=== PATIENT | female | born 1945 | race Caucasian/White ===

== ENCOUNTER → 2021-08-06 10:30 | Outpatient (CLI) | payer MEDICARE, SELFPAY ==
[2021-08-06 19:12] LABS: Alanine Aminotransferase 36 IU/L (<35); Albumin 4.2 g/dL (3.5-5.0); Albumin Globulin Ratio 1.6 (1.0-2.8); Alkaline Phosphatase 69 U/L (38-126); Aspartate Aminotransferase 36 IU/L (14-36); BUN Creatinine Ratio 19.7 (6-22); Bilirubin Total 1.3 mg/dL (0.2-1.3); Blood Urea Nitrogen 14 mg/dL (7-17); Calcium 9.5 mg/dL (8.4-10.2); Carbon Dioxide 28 mmol/L (22-32); Chloride 104 mmol/L (98-107); Cholesterol 159 mg/dL (140-199); Estimated Glomerular Filt Rate > 60.0 mL/min (>60); Globulin 2.6 g/dL (1.7-4.1); Glucose 107 mg/dL (80-110); HDL Cholesterol 70 mg/dL (40-60); HEMOLYSIS < 15 (0-50); LDL Cholesterol Calculated 72 mg/dL (<100); Potassium 4.4 mmol/L (3.4-5.1); Sodium 140 mmol/L (137-145); Total Protein 6.8 g/dL (6.3-8.2); Triglycerides 86 mg/dL (35-150)
== END ==
PROVIDERS: Family Provider Family Medicine; PCP Family Medicine; Referring Provider Family Medicine; Visit Provider Family Medicine
DX: E78.5 Hyperlipidemia, unspecified (principal)
CPT/HCPCS: 80053; 80061

== ENCOUNTER → 2021-11-12 11:03 | Outpatient (CLI) | payer MEDICARE, OTHER, SELFPAY ==
[2021-11-12 18:47] LABS: Alanine Aminotransferase 19 IU/L (<35); Albumin 4.1 g/dL (3.5-5.0); Albumin Globulin Ratio 1.6 (1.0-2.8); Alkaline Phosphatase 55 U/L (38-126); Aspartate Aminotransferase 25 IU/L (14-36); BUN Creatinine Ratio 22.8 (6-22); Bilirubin Total 0.9 mg/dL (0.2-1.3); Blood Urea Nitrogen 18 mg/dL (7-17); Calcium 9.7 mg/dL (8.4-10.2); Carbon Dioxide 31 mmol/L (22-32); Chloride 103 mmol/L (98-107); Estimated Glomerular Filt Rate > 60.0 mL/min (>60); Globulin 2.5 g/dL (1.7-4.1); Glucose 106 mg/dL (80-110); HEMOLYSIS < 15 (0-50); Potassium 4.2 mmol/L (3.4-5.1); Sodium 137 mmol/L (137-145); Total Protein 6.6 g/dL (6.3-8.2)
== END ==
PROVIDERS: Family Provider Family Medicine; PCP Family Medicine; Visit Provider Student in an Organized Health Care Education/Training Program
DX: M81.0 Age-related osteoporosis without current pathological fracture (principal); Z91.89 Other specified personal risk factors, not elsewhere classified
CPT/HCPCS: 80053

== ENCOUNTER → 2022-05-31 11:27 | Outpatient (CLI) | payer MEDICARE, OTHER, SELFPAY ==
[2022-05-31 21:05] LABS: Alanine Aminotransferase 17 IU/L (<35); Albumin 3.8 g/dL (3.5-5.0); Albumin Globulin Ratio 1.5 (1.0-2.8); Alkaline Phosphatase 57 U/L (38-126); Aspartate Aminotransferase 26 IU/L (14-36); BUN Creatinine Ratio 14.9 (6-22); Blood Urea Nitrogen 11 mg/dL (7-17); Calcium 8.7 mg/dL (8.4-10.2); Carbon Dioxide 26 mmol/L (22-32); Chloride 104 mmol/L (98-107); Cholesterol 140 mg/dL (140-199); Estimated Glomerular Filt Rate > 60 mL/min (>60); Globulin 2.5 g/dL (1.7-4.1); Glucose 113 mg/dL (80-110); HDL Cholesterol 65 mg/dL (40-60); HEMOLYSIS < 15 (0-50); LDL Cholesterol Calculated 64 mg/dL (<100); Potassium 4.6 mmol/L (3.4-5.1); Sodium 137 mmol/L (137-145); Total Protein 6.3 g/dL (6.3-8.2); Triglycerides 53 mg/dL (35-150)
[2022-05-31 21:35] LABS: TSH w/ Reflex to FT4 3.71 uIU/mL (0.47-4.68)
== END ==
PROVIDERS: Family Provider Family Medicine; PCP Family Medicine; Visit Provider Family Medicine
DX: I10 Essential (primary) hypertension (principal); E78.5 Hyperlipidemia, unspecified; M81.0 Age-related osteoporosis without current pathological fracture
CPT/HCPCS: 80053; 80061; 84443

== ENCOUNTER → 2023-04-27 10:31 | Outpatient (CLI) | payer MEDICARE, OTHER, SELFPAY ==
[2023-04-27 20:20] LABS: Add Manual Diff / Slide Review NO; Basophils Absolute Auto 0 /uL (0-100); Basophils Percent Auto 0.5 % (0-2); Eosinophils Absolute Auto 100 /uL (0-450); Hematocrit 38.6 % (36-46); Lymphocytes Absolute Auto 900 /uL (1100-4500); Lymphocytes Percent Auto 22.8 % (25-40); Mean Corpuscular HGB Conc 33.7 % (30-36); Mean Corpuscular Volume 94.9 fL (80-100); Monocytes Absolute Auto 400 /uL (0-900); Monocytes Percent Auto 10.5 % (3-14); Neutrophils Absolute Auto 2600 /uL (1500-7000); Neutrophils Percent Auto 63.2 % (50-75); Platelet Count 179 X10^3/uL (150-400); Red Blood Cell Count 4.06 X10^6/uL (4.0-5.2); Red Cell Distribution Width 12.8 % (11.6-14.8); White Blood Cell Count 4.1 X10^3/uL (4.5-11.0)
[2023-04-27 20:22] LABS: Alanine Aminotransferase 24 IU/L (<35); Albumin 3.7 g/dL (3.5-5.0); Albumin Globulin Ratio 1.3 (1.0-2.8); Alkaline Phosphatase 58 U/L (38-126); Aspartate Aminotransferase 54 IU/L (14-36); BUN Creatinine Ratio 16.7 (6-22); Bilirubin Total 1.3 mg/dL (0.2-1.3); Blood Urea Nitrogen 12 mg/dL (7-17); Calcium 8.8 mg/dL (8.4-10.2); Carbon Dioxide 28 mmol/L (22-32); Chloride 105 mmol/L (98-107); Cholesterol 158 mg/dL (140-199); Estimated Glomerular Filt Rate > 60 mL/min (>60); Globulin 2.9 g/dL (1.7-4.1); Glucose 104 mg/dL (80-110); HDL Cholesterol 74 mg/dL (40-60); HEMOLYSIS < 15 (0-50); LDL Cholesterol Calculated 75 mg/dL (<100); Potassium 4.4 mmol/L (3.4-5.1); Sodium 137 mmol/L (137-145); Total Protein 6.6 g/dL (6.3-8.2); Triglycerides 46 mg/dL (35-150)
== END ==
PROVIDERS: Family Provider Family Medicine; PCP Family Medicine; Visit Provider Family Medicine
DX: I10 Essential (primary) hypertension (principal); E78.2 Mixed hyperlipidemia; E78.5 Hyperlipidemia, unspecified; F32.9 Major depressive disorder, single episode, unspecified
CPT/HCPCS: 80053; 80061; 85025

== ENCOUNTER → 2023-09-28 10:40 | Outpatient (CLI) | payer MEDICARE, OTHER, SELFPAY ==
[2023-09-28 12:35] LABS: Add Manual Diff / Slide Review NO; Basophils Absolute Auto 0 /uL (0-100); Basophils Percent Auto 0.4 % (0-2); Eosinophils Absolute Auto 100 /uL (0-450); Eosinophils Percent Auto 1.3 % (2-4); Hematocrit 40.6 % (36-46); Hemoglobin 13.7 g/dL (12.0-16.0); Lymphocytes Absolute Auto 1300 /uL (1100-4500); Lymphocytes Percent Auto 15.3 % (25-40); Mean Corpuscular HGB Conc 33.8 % (30-36); Mean Corpuscular Hemoglobin 31.8 PG (26-34); Mean Corpuscular Volume 93.9 fL (80-100); Monocytes Absolute Auto 600 /uL (0-900); Monocytes Percent Auto 7.6 % (3-14); Neutrophils Absolute Auto 6400 /uL (1500-7000); Neutrophils Percent Auto 75.4 % (50-75); Platelet Count 257 X10^3/uL (150-400); Red Blood Cell Count 4.32 X10^6/uL (4.0-5.2); Red Cell Distribution Width 12.5 % (11.6-14.8); White Blood Cell Count 8.4 X10^3/uL (4.5-11.0)
[2023-09-28 12:46] LABS: Hemoglobin A1C% w Est Avg Glu 5.7 % (4.0-6.0)
[2023-09-28 13:03] LABS: BUN Creatinine Ratio 20.3 (6-22); Blood Urea Nitrogen 16 mg/dL (7-17); Calcium 9.8 mg/dL (8.4-10.2); Carbon Dioxide 28 mmol/L (22-32); Chloride 100 mmol/L (98-107); Estimated Glomerular Filt Rate > 60 mL/min (>60); Glucose 99 mg/dL (80-110); HEMOLYSIS < 15 (0-50); Potassium 4.4 mmol/L (3.4-5.1); Sodium 135 mmol/L (137-145)
[2023-09-28 18:10] LABS: Appearance Urine UA CLEAR; Bilirubin Urine UA NEGATIVE (NEGATIVE); Color Urine UA YELLOW; Glucose Urine UA NEGATIVE (Negative); Ketones Urine UA NEGATIVE (NEGATIVE); Leukocyte Esterase Urine UA NEGATIVE (NEGATIVE); Nitrite Urine UA NEGATIVE (Negative); Occult Blood Urine UA NEGATIVE (Negative); Protein Urine UA NEGATIVE (Negative); Urobilinogen Urine UA 0.2 E.U./dL (0.2)
[2023-09-28 18:30] LABS: Bacteria Urine None Seen; RBC Urine None Seen (0-5/HPF); Squamous Epithelial Cell Urine 0-1 /HPF (0-5/HPF); WBC Urine None Seen (0-5/HPF)
[2023-09-28 18:31] LABS: Culture Indicated Urine Cult Not Indicated
== END ==
PROVIDERS: Family Provider Family Medicine; PCP Family Medicine; Referring Provider Orthopaedic Surgery; Visit Provider Orthopaedic Surgery
DX: Z01.818 Encounter for other preprocedural examination (principal); R73.9 Hyperglycemia, unspecified; Z01.812 Encounter for preprocedural laboratory examination; N39.0 Urinary tract infection, site not specified
CPT/HCPCS: 36415; 80048; 81001; 83036; 85025; 93005; 93010

== ENCOUNTER → 2024-05-16 09:34 | Outpatient (CLI) | payer MEDICARE, OTHER, SELFPAY ==
[2024-05-16 20:19] LABS: Add Manual Diff / Slide Review NO; Basophils Absolute Auto 0 /uL (0-100); Basophils Percent Auto 0.5 % (0-2); Eosinophils Absolute Auto 100 /uL (0-450); Hematocrit 39.2 % (36-46); Lymphocytes Absolute Auto 1100 /uL (1100-4500); Lymphocytes Percent Auto 19.2 % (25-40); Mean Corpuscular HGB Conc 33.3 % (30-36); Mean Corpuscular Hemoglobin 31.5 PG (26-34); Mean Corpuscular Volume 94.7 fL (80-100); Monocytes Absolute Auto 500 /uL (0-900); Monocytes Percent Auto 7.9 % (3-14); Neutrophils Absolute Auto 4000 /uL (1500-7000); Neutrophils Percent Auto 70.4 % (50-75); Platelet Count 207 X10^3/uL (150-400); Red Blood Cell Count 4.14 X10^6/uL (4.0-5.2); Red Cell Distribution Width 12.4 % (11.6-14.8); White Blood Cell Count 5.7 X10^3/uL (4.5-11.0)
[2024-05-16 20:34] LABS: Alanine Aminotransferase 22 IU/L (<35); Albumin Globulin Ratio 1.6 (1.0-2.8); Alkaline Phosphatase 73 U/L (38-126); Aspartate Aminotransferase 31 IU/L (14-36); BUN Creatinine Ratio 19.5 (6-22); Bilirubin Total 0.8 mg/dL (0.2-1.3); Bilirubin Unconjugated 0.3 mg/dL (0.0-1.1); Blood Urea Nitrogen 15 mg/dL (7-17); Carbon Dioxide 25 mmol/L (22-32); Chloride 107 mmol/L (98-107); Cholesterol 170 mg/dL (140-199); Estimated Glomerular Filt Rate > 60 mL/min (>60); Globulin 2.5 g/dL (1.7-4.1); Glucose 107 mg/dL (80-110); HDL Cholesterol 64 mg/dL (40-60); HEMOLYSIS 21 (0-50); LDL Cholesterol Calculated 89 mg/dL (<100); Potassium 4.3 mmol/L (3.4-5.1); Sodium 137 mmol/L (137-145); Total Protein 6.5 g/dL (6.3-8.2); Triglycerides 85 mg/dL (35-150)
[2024-05-16 21:05] LABS: TSH w/ Reflex to FT4 3.62 uIU/mL (0.47-4.68)
[2024-05-16 21:27] LABS: Hepatitis B Surface Antigen NEGATIVE s/c (NEGATIVE)
[2024-05-16 21:44] LABS: Hep C Virus Ab w/Reflex Quant NEGATIVE s/c (NEGATIVE)
== END ==
PROVIDERS: PCP Family Medicine; Referring Provider Family Medicine; Visit Provider Family Medicine
DX: R00.2 Palpitations (principal); R79.89 Other specified abnormal findings of blood chemistry; D72.810 Lymphocytopenia; E78.2 Mixed hyperlipidemia; I10 Essential (primary) hypertension
CPT/HCPCS: 80048; 80061; 80076; 84443; 85025; 86803; 87340

== ENCOUNTER → 2024-05-23 13:37 | Outpatient (CLI) | payer MEDICARE, OTHER, SELFPAY ==
--- NOTE | 2024-05-23 13:40 | DI.ECHO.S_ITS ---
[facility] : : [address] : : [place] : : [id number] : : Phone: [phone] Echocardiogram Report + + :Name: BRIAN HUBBARD Study Date: 05/23/2024 Height: 60 in : :Hospital ReadingLocation: Weight: 122 lb : : Gender: Female BSA: 1.5 m2 : :: 1945 Age: 78 yrs BP: 136/69 mmHg: :Reason For Study: Atrial fibrillation : :Ordering Physician: : :KATHLEEN CHACKO Performed By: Lori Gil : :Referring: KATHLEEN CHACKO : + + Interpretation Summary Normal sinus rhythm with rare PVCs. Normal LV size and wall thickness. Normal wall motion and LV systolic function. Ejection fraction is 60-65%. Normal chamber sizes. No significant valvular abnormalities. Compared to prior echocardiogram October 12, 2020, no changes have occurred. Procedure: A two-dimensional transthoracic echocardiogram with color flow and Doppler was performed. The study quality was technically adequate. Comparison is made with the echocardiogram of 08-01-20. The heart rate ranged between 72-77 bpm during the study. Left Ventricle: The left ventricle is normal in size and wall thickness. The ejection fraction is estimated to be 55-60%. Diastolic parameters suggest probable normal left ventricular diastolic function and normal filling pressures. Right Ventricle: Borderline right ventricular enlargement. The right ventricular systolic function is normal. Atria: The left atrial size is normal. Right atrial size is normal. The interatrial septum grossly appears intact with no obvious evidence for an atrial septal defect. Mitral Valve: The mitral valve leaflets appear mildly thickened, but open well. There is mild mitral regurgitation. Aortic Valve: The aortic valve is trileaflet. The aortic valve opens well. No aortic regurgitation is present. Tricuspid Valve: The tricuspid valve leaflets are thin and pliable. There is mild tricuspid regurgitation. The right ventricular systolic pressure is estimated to be at least 19 mmHg based on an estimated right atrial pressure of 3 mm Hg. Pulmonic Valve: The pulmonic valve is normal in structure and function. There is no pulmonic valvular regurgitation. Great Vessels: The aortic root is normal size. The ascending aorta is normal in size. The aortic arch is normal in size. The IVC is of normal diameter and collapses greater than 50% with a sniff. This suggests a low right atrial pressure of 3 mm Hg. Pericardium/ Pleura There is no pericardial effusion. There is no pleural effusion. MMode/2D Measurements & Calculations LVIDd: 4.0 cm LVOT diam: 1.9 cm LVIDs: 2.7 cm Ao root diam: 2.8 cm FS: 32.5 % asc Aorta Diam: 2.7 cm EPSS: 0.33 cm Ao Arch Diam (Prox Trans): 2.1 cm IVSd: 0.83 cm LVPWd: 0.61 cm LV russo. diameter/BSA (cm/m^2): 2.6 LV sys. diameter/BSA (cm/m^2): 1.8 LA A2 area: 14.9 cm2 RA long axis: 5.0 cm LA A4 area: 19.5 cm2 RA area: 15.7 cm2 LA length (vol): 5.1 cm RA vol: 42.3 ml LA vol: 48.7 ml RA : 28.0 ml/m2 LA vol index: 32.2 ml/m2 IVC diam: 1.5 cm TAPSE: 1.9 cm Doppler Measurements & Calculations Ao V2 max: 133.7 cm/sec LVOT Max Luis: 98.3 cm/sec Ao V2 mean: 88.2 cm/sec LV V1 max P.9 mmHg Ao max P.2 mmHg LV V1 VTI: 23.0 cm Ao mean P.6 mmHg ALIA(I,D): 2.0 cm2 Ao V2 VTI: 31.6 cm ALIA(V,D): 2.1 cm2 sev ratio: 0.73 ALIA indexed to BSA (cm^2/m^2): 1.4 MV E max luis: 69.6 cm/sec TR max luis: 193.2 cm/sec MV A max luis: 57.1 cm/sec TR max P.1 mmHg MV E/A: 1.2 PA V2 max: 69.1 cm/sec Med Peak E' Luis: 6.9 cm/sec PA V2 mean: 51.0 cm/sec E/E' med: 10.1 PA mean P.1 mmHg Lat Peak E' Luis: 7.6 cm/sec E/E' lat: 9.2 E/e' average: 9.6 MV dec time: 0.21 sec SV(LVOT): 64.6 ml Electronically signed by: Toña Altamirano M.D. on Reading Physician:05/23/2024 05:08 PM
== END ==
PROVIDERS: Family Provider Family Medicine; PCP Family Medicine; Referring Provider Family Medicine; Visit Provider Family Medicine
DX: I08.1 Rheumatic disorders of both mitral and tricuspid valves (principal); R00.2 Palpitations; G47.33 Obstructive sleep apnea (adult) (pediatric)
CPT/HCPCS: 93306

== ENCOUNTER 2024-10-05 15:26 | Emergency (ER) | payer MEDICARE, OTHER, SELFPAY ==
[2024-10-05 15:39] VITALS: BP 173/84; PULSE 80; RESP 17; TEMP 36.2; O2SAT 95; BMI 23.6
--- NOTE | 2024-10-05 17:09 | DI.RAD.S_ITS ---
PROCEDURE: XR CHEST 2V INDICATIONS: SOB TECHNIQUE: 2 views of the chest were acquired. COMPARISON: None. FINDINGS: Surgical changes and devices: None. Lungs and pleura: There is hazy obscuration of the hemidiaphragms, right greater than left. Left lower lobe atelectasis is also present. Mediastinum: Mediastinal contours are normal. Heart size is normal. Bones and chest wall: No suspicious bony abnormalities. Soft tissues appear unremarkable. IMPRESSION: Right lower lobe consolidation with a likely component of small effusion. Dictated by: Ebonie Culver M.D. on 10/05/2024 at 16:28 Approved by: Ebonie Culver M.D. on 10/05/2024 at 16:31
--- NOTE | 2024-10-05 17:47 | ED_ITS ---
HPI - URI/Sore Throat <Joanne Collier PA-C - Last Filed: 10/05/24 19:42> General Chief Complaint: Upper Respiratory Symptoms Stated Complaint: SOB, wheezing Time Seen by Provider: 10/05/24 17:19 Source: patient Mode of arrival: Ambulatory History of Present Illness HPI Narrative: This is a 79-year-old woman with a history of hypertension, SVT, hyperlipidemia presenting with her with concern for feeling short of breath with exertion and having pain in her right back/flank that is worse with taking deep breaths. Symptoms began on Monday. She initially attributed the back discomfort to her chronic pain with osteoporosis and states it felt like a muscle spasm and assumed it would go away. It has gotten slightly better but has not gone away. Her is a physician and he listened to her lungs yesterday and thought he heard some rales in her lower lung on the right listened again today and felt he heard them on both sides. She states she has not felt especially tired lately but she has been feeling short of breath compared to her normal when she is active or exerting herself at all which is atypical. She denies chest pain, coughing, hemoptysis, fevers, chills or other symptoms. notes concern that she was pretty stationary on Monday with multiple [place] rides and being in a long meeting and is concerned about a pulmonary embolism. They came in today for further evaluation. notes they are due to travel on Monday in 3 days' time. Patient states that she has been titrating down her blood pressure medications for weeks to months and does check her blood pressure fairly often though she has been checking it less since things were stable. She has checked it twice this week and states her blood pressure was around 142 for the top number and another time she checked it was in the 120s. Related Data Previous Rx's Medication Instructions Recorded trazodone 100 mg tablet 100 mg PO BEDTIME PRN sleep #90 04/07/23 tabs atorvastatin 40 mg tablet 40 mg PO HS #90 tabs 12/04/23 sertraline 50 mg tablet (Zoloft) 75 mg (1.5 x 50 mg) PO QDAY #135 02/02/24 tabs nirmatrelvir 300 mg (150 mg See Rx Instructions PO .COMPLEX 05/10/24 x2)-ritonavir 100 mg tablet,dose #30 ea pack (Paxlovid) metoprolol succinate 25 mg 12.5 mg (1/2 x 25 mg) PO DAILY #45 06/12/24 tablet,extended release 24 hr tabs (Toprol XL) losartan 25 mg tablet 37.5 mg (1.5 x 25 mg) PO DAILY 09/11/24 #135 tabs acetaminophen 300 mg-codeine 30 mg 1 tab PO QIDP PRN pain #40 tabs 10/03/24 tablet azithromycin 250 mg tablet 250 mg PO DAILY 4 days #4 tabs 10/05/24 Allergies Allergy/AdvReac Type Severity Reaction Status Date / Time aspirin Allergy Unknown BLEEDS Verified 10/05/24 15:39 INTERNALLY ibuprofen Allergy Unknown aleve as Verified 10/05/24 15:39 well both upset her esophagus Review of Systems <Joanne Collier PA-C - Last Filed: 10/05/24 19:42> Review of Systems Narrative: See HPI Patient History <Joanne Collier PA-C - Last Filed: 10/05/24 19:42> Medical History Screening for breast cancer Screening for colon cancer Surgical History H/O hernia repair History of back surgery Social History Smoking Status: Never smoker Smoking Status: Never smoker Exam <Joanne Collier PA-C - Last Filed: 10/05/24 19:42> Narrative Exam Narrative: GENERAL: [79] year old patient appears stated age. Well-developed patient, in mild distress. HEAD: Atraumatic. Normocephalic. EYES: Pupils equal round and reactive. Extraocular motions intact. No scleral icterus. No injection or drainage. ENT: Nose without bleeding, purulent drainage. Airway patent. NECK: Trachea midline. Non tender CARDIOVASCULAR: Regular rate and rhythm without murmurs, gallops, or rubs. RESPIRATORY: Clear to auscultation in upper [place]. There are subtle rales/crackles versus mild rhonchi in the lower right field. Breath sounds otherwise equal bilaterally. No other wheezes, rales, or rhonchi. EXTREMITIES: No edema or joint tenderness. BACK: Nontender without deformity or crepitance. No flank tenderness. NEURO: AOx3. SKIN: No rash or erythema of visible areas Initial Vital Signs Initial Vital Signs: Vital Signs Temperature 97.2 F L 10/05/24 15:39 Pulse Rate 80 10/05/24 15:39 Respiratory Rate 17 10/05/24 15:39 Blood Pressure 173/84 H 10/05/24 15:39 Pulse Oximetry 95 10/05/24 15:39 Oxygen Delivery Method Room Air 10/05/24 15:39 <Juan R Carrero DO - Last Filed: 10/05/24 23:03> Initial Vital Signs Initial Vital Signs: Vital Signs Temperature 97.2 F L 10/05/24 15:39 Pulse Rate 80 10/05/24 15:39 Respiratory Rate 17 10/05/24 15:39 Blood Pressure 173/84 H 10/05/24 15:39 Pulse Oximetry 95 10/05/24 15:39 Oxygen Delivery Method Room Air 10/05/24 15:39 Course <Joanne Collier PA-C - Last Filed: 10/05/24 19:42> Course Course Narrative: I discussed this patient with Dr. Carrero attending physician who remains on shift in the emergency department and he agrees to take over the patient's care with CT study pending. 1929 Orders Ordered: ED Orders 10/05/24 17:09 XR chest 2V Stat 10/05/24 18:23 BNP [NT-proBNP (BNP-Adult 18+)] Stat CBC Auto Diff [Complete Blood Count AUTO DIFF] Stat CMP [Comprehensive Metabolic Panel] Stat D Dimer Stat Troponin & CK Cardiac Panel Stat 10/05/24 19:01 CT angio chest PE protocol Stat Discontinued Medications Azithromycin (Azithromycin 250 Mg Tablet) 500 mg PO NOW ONE Stop: 10/05/24 20:14 Last Admin: 10/05/24 20:18 Dose: 500 mg Documented By: MONTRELL Vital Signs Vital signs: Vital Signs - 8 hr 10/05/24 15:39 10/05/24 19:49 10/05/24 20:00 Temperature 97.2 F L Pulse Rate 80 70 71 Respiratory Rate 17 16 Blood Pressure 173/84 H 161/72 H Pulse Oximetry 95 98 96 Oxygen Delivery Method Room Air Room Air <DO Eladio Henriquez Filed: 10/05/24 23:03> Orders Ordered: ED Orders 10/05/24 17:09 XR chest 2V Stat 10/05/24 18:23 BNP [NT-proBNP (BNP-Adult 18+)] Stat CBC Auto Diff [Complete Blood Count AUTO DIFF] Stat CMP [Comprehensive Metabolic Panel] Stat D Dimer Stat Troponin & CK Cardiac Panel Stat 10/05/24 19:01 CT angio chest PE protocol Stat Discontinued Medications Azithromycin (Azithromycin 250 Mg Tablet) 500 mg PO NOW ONE Stop: 10/05/24 20:14 Last Admin: 10/05/24 20:18 Dose: 500 mg Documented By: MONTRELL Vital Signs Vital signs: Vital Signs - 8 hr 10/05/24 15:39 10/05/24 19:49 10/05/24 20:00 Temperature 97.2 F L Pulse Rate 80 70 71 Respiratory Rate 17 16 Blood Pressure 173/84 H 161/72 H Pulse Oximetry 95 98 96 Oxygen Delivery Method Room Air Room Air MDM - URI/Sore Throat <Joanne Collier PA-C - Last Filed: 10/05/24 19:42> Differential Diagnosis Differential diagnosis: Likely upper respiratory infection, viral infection and other (pnemonia, pleural effusion, PE) Medical Records Attestation: I reviewed the patient's medical records. Lab Data 10/05/24 18:23 10/05/24 18:23 Labs: Lab Results 10/05/24 Range/Units 18:23 WBC 6.4 (4.5-11.0) X10^3/uL RBC 4.36 (4.0-5.2) X10^6/uL Hgb 13.8 (12.0-16.0) g/dL Hct 40.9 (36-46) % MCV 93.9 (80-100) fL MCH 31.7 (26-34) PG MCHC 33.7 (30-36) % RDW 12.7 (11.6-14.8) % Plt Count 197 (150-400) X10^3/uL Neut % (Auto) 68.5 (50-75) % Lymph % (Auto) 18.7 L (25-40) % [place] % (Auto) 9.8 (3-14) % Eos % (Auto) 2.2 (2-4) % Baso % (Auto) 0.8 (0-2) % Neut # (Auto) 4400 (0646-4265) /uL Lymph # (Auto) 1200 (8826-7165) /uL [place] # (Auto) 600 (0-900) /uL Eos # (Auto) 100 (0-450) /uL Baso # (Auto) 100 (0-100) /uL D-Dimer 1030 H (<500) ng/ml Sodium 139 (137-145) mmol/L Potassium 3.9 (3.4-5.1) mmol/L Chloride 106 (98-107) mmol/L Carbon Dioxide 26 (22-32) mmol/L BUN 16 (7-17) mg/dL Creatinine 0.75 (0.52-1.04) mg/dL Estimated GFR > 60 (>60) mL/min BUN/Creatinine Ratio 21.3 (6-22) Glucose 89 (80-110) mg/dL Calcium 9.5 (8.4-10.2) mg/dL Total Bilirubin 1.1 (0.2-1.3) mg/dL AST 30 (14-36) IU/L ALT 22 (<35) IU/L Alkaline Phosphatase 83 (38-126) U/L Total Creatine Kinase 56 (30-135) U/L Troponin I < 0.012 (0.01-0.034) ng/mL NT-Pro-B Natriuret Pep 507 H (<450) pg/mL Total Protein 7.3 (6.3-8.2) g/dL Albumin 4.3 (3.5-5.0) g/dL Globulin 3.0 (1.7-4.1) g/dL Albumin/Globulin Ratio 1.4 (1.0-2.8) Imaging Data Chest x-ray: My Impression: Agree with Radiology interpretation Radiologist's Impression: [address] [address] XRay Report Signed Patient: Madyson Canales MR#: [id number] : 1945 Acct:[id number] Age/Sex: 79 / F Date of Service: 10/05/24 Loc: ED Accession Number: [id number] Procedure: XR chest 2V Ordering Provider: Amy Ribera D.O. PROCEDURE: XR CHEST 2V INDICATIONS: SOB TECHNIQUE: 2 views of the chest were acquired. COMPARISON: None. FINDINGS: Surgical changes and devices: None. Lungs and pleura: There is hazy obscuration of the hemidiaphragms, right greater than left. Left lower lobe atelectasis is also present. Mediastinum: Mediastinal contours are normal. Heart size is normal. Bones and chest wall: No suspicious bony abnormalities. Soft tissues appear unremarkable. IMPRESSION: Right lower lobe consolidation with a likely component of small effusion. Dictated by: Ebonie Culver M.D. on 10/05/2024 at 16:28 Approved by: Ebonie Culver M.D. on 10/05/2024 at 16:31 [facility] Narrative Medical decision making narrative: 79-year-old woman presents to the ER today with concern for shortness of breath more prominent with exertion since Monday and pleuritic type pain in the right low back. Exam was notable for changes to the lung sounds in the right lower lung, x-ray did return positive for lower lobe consolidation likely consistent with pneumonia with a small effusion present. We discussed treating with azithromycin given mycoplasma pneumonia is prevalent currently and patient has had no cough symptoms which are more likely to suggest pneumonia such as mycoplasma. On further discussion with the patient's , an MD, he is concerned with pulmonary embolism as he feels she has had periods of immobility recently and with her low O2 sats and shortness of breath, pain on breathing he would like further evaluation for this. I feel this is reasonable; [place], we obtain labs including a D- dimer CBC and CMP. D-dimer is elevated, age adjusted D-dimer cutoff is 770, patient's D-dimer is over 1000. Discussed with patient his and order CT PE for further evaluation. <Juan R Carrero, DO - Last Filed: 10/05/24 23:03> Lab Data Labs: Lab Results 10/05/24 Range/Units 18:23 WBC 6.4 (4.5-11.0) X10^3/uL RBC 4.36 (4.0-5.2) X10^6/uL Hgb 13.8 (12.0-16.0) g/dL Hct 40.9 (36-46) % MCV 93.9 (80-100) fL MCH 31.7 (26-34) PG MCHC 33.7 (30-36) % RDW 12.7 (11.6-14.8) % Plt Count 197 (150-400) X10^3/uL Neut % (Auto) 68.5 (50-75) % Lymph % (Auto) 18.7 L (25-40) % [place] % (Auto) 9.8 (3-14) % Eos % (Auto) 2.2 (2-4) % Baso % (Auto) 0.8 (0-2) % Neut # (Auto) 4400 (4270-0230) /uL Lymph # (Auto) 1200 (0634-9290) /uL [place] # (Auto) 600 (0-900) /uL Eos # (Auto) 100 (0-450) /uL Baso # (Auto) 100 (0-100) /uL D-Dimer 1030 H (<500) ng/ml Sodium 139 (137-145) mmol/L Potassium 3.9 (3.4-5.1) mmol/L Chloride 106 (98-107) mmol/L Carbon Dioxide 26 (22-32) mmol/L BUN 16 (7-17) mg/dL Creatinine 0.75 (0.52-1.04) mg/dL Estimated GFR > 60 (>60) mL/min BUN/Creatinine Ratio 21.3 (6-22) Glucose 89 (80-110) mg/dL Calcium 9.5 (8.4-10.2) mg/dL Total Bilirubin 1.1 (0.2-1.3) mg/dL AST 30 (14-36) IU/L ALT 22 (<35) IU/L Alkaline Phosphatase 83 (38-126) U/L Total Creatine Kinase 56 (30-135) U/L Troponin I < 0.012 (0.01-0.034) ng/mL NT-Pro-B Natriuret Pep 507 H (<450) pg/mL Total Protein 7.3 (6.3-8.2) g/dL Albumin 4.3 (3.5-5.0) g/dL Globulin 3.0 (1.7-4.1) g/dL Albumin/Globulin Ratio 1.4 (1.0-2.8) Imaging Data CT scan - chest: Radiologist's Impression: PROCEDURE: CT ANGIO CHEST PE PROTOCOL INDICATIONS: low sat, elevated dimer, shob w/exertion TECHNIQUE: After the administration of intravenous contrast, 2 mm thick sections acquired from the pulmonary apices to the posterior costophrenic angles. 3-dimensional maximum intensity projection (MIP) coronal and sagittal reformats were then acquired through the thorax. For radiation dose reduction, the following was used: automated exposure control, adjustment of mA and/or kV according to patient size. COMPARISON: [facility], CR, XR CHEST 2V, 10/05/2024, 17:08. FINDINGS: Image quality: Diagnostic. Pulmonary arteries: Pulmonary arteries are normal in size, and demonstrate no intraluminal filling defects to suggest central pulmonary embolism. Lower Neck: No enlarged lymph nodes. Thyroid: No thyroid nodules which require sonographic follow up, per consensus guidelines. Axillae: No enlarged lymph nodes. Chest Wall: Unremarkable. Bones: Visualized osseous structures appear intact without acute fracture or focal destructive lesion. No acute compression fractures of the imaged spine. Lungs and Pleura: No pneumothorax or pleural effusions. No suspicious pulmonary nodules. Bibasilar atelectasis. Mild patchy consolidations of the left lower lobe, right lower lobe and medial right middle lobe with mild perihilar airway thickening. Heart: Heart size is normal. No pericardial effusion. Thoracic Vessels: No aortic aneurysm. Mediastinum and Hiral: No enlarged lymph nodes. Esophagus: No wall thickening. No hiatal hernia. Upper Abdomen: Visualized upper abdomen solid organs and bowel loops appear normal. IMPRESSION: No pulmonary embolus. No evidence for acute right-sided heart strain. Patchy right greater than left bibasilar consolidations as well as the medial right middle lobe which are favored to represent atelectasis. However, early infectious process not excluded if clinically appropriate. Otherwise, no acute cardiopulmonary abnormalities identified. MDM Narrative Medical decision making narrative: 79-year-old woman presents to the ER today with concern for shortness of breath more prominent with exertion since Monday and pleuritic type pain in the right low back. Exam was notable for changes to the lung sounds in the right lower lung, x-ray did return positive for lower lobe consolidation likely consistent with pneumonia with a small effusion present. We discussed treating with azithromycin given mycoplasma pneumonia is prevalent currently and patient has had no cough symptoms which are more likely to suggest pneumonia such as mycoplasma. On further discussion with the patient's , an MD, he is concerned with pulmonary embolism as he feels she has had periods of immobility recently and with her low O2 sats and shortness of breath, pain on breathing he would like further evaluation for this. I feel this is reasonable; [place], we obtain labs including a D- dimer CBC and CMP. D-dimer is elevated, age adjusted D-dimer cutoff is 770, patient's D-dimer is over 1000. Discussed with patient his and order CT PE for further evaluation. Dr Carrero: Received turned over. Review patient's history and physical. Chest x-ray somewhat concerning for pneumonia. CT scan of the chest does not show pneumonia. Does show bilateral patchy airspace disease. Could be consistent with atelectasis versus pneumonia. She was not have a white count. Is afebrile. Does not have a productive cough. I feel that pneumonia is unlikely however she was having shortness of breath and there are abnormal findings noted on imaging studies. I discussed options with her to include using an incentive spirometer and seeing how her symptoms progress over the next couple days and starting antibiotics after falling up with primary doctor versus starting on antibiotics today. We discussed the risks and benefits of both of these options and she would like to start on antibiotics. First dose given here in the emergency department. A prescription was sent to the pharmacy of her choice. She was advised to contact her primary provider for follow-up. Discharge Plan Departure Patient Disposition: Home Clinical Impression: Shortness of breath, Pneumonia Instructions: Pneumonia-Adult Activity Restrictions/Additional Instructions: Continue to take all of your medications as directed. Contact your primary care doctor for a follow-up. Return to the emergency department for new or worsening symptoms. Prescriptions: New azithromycin 250 mg tablet 250 mg PO DAILY 4 Days Qty: 4 0RF Rx Instructions: start on day 2 of therapy No Action atorvastatin 40 mg tablet 40 mg PO HS Qty: 90 3RF sertraline [Zoloft] 50 mg tablet 75 mg PO QDAY Qty: 135 3RF Paxlovid 300 mg (150 mg x 2)-100 mg tablets,dose pack See Rx Instructions PO .COMPLEX Qty: 30 0RF Rx Instructions: take TWO 150 mg tablets of nirmatrelvir with ONE 100 mg tablet of ritonavir twice daily for 5 days PO losartan 25 mg tablet 37.5 mg PO DAILY Qty: 135 1RF acetaminophen-codeine 300-30 mg tablet 1 tab PO QIDP PRN (Reason: pain) Qty: 40 0RF trazodone 100 mg tablet 100 mg PO BEDTIME PRN (Reason: sleep) Qty: 90 1RF Rx Instructions: TAKE 0.5 TAB (50 MG) BY MOUTH AT BEDTIME NEEDED FOR SLEEP. MAY INCREASE TO 100 MG QHS AFTER 3 DAYS. triamcinolone acetonide [Kenalog] 40 mg/mL suspension 40 mg Tendon Sheath Inj. ONCE Qty: 1 0RF metoprolol succinate [Toprol XL] 25 mg tablet extended release 24 hr 12.5 mg PO DAILY Qty: 45 2RF Referrals: Maged Augustine MD [Primary Care Provider] - Stand Alone Forms: Patient Portal/API/Survey
[2024-10-05 18:42] LABS: Add Manual Diff / Slide Review NO; Basophils Absolute Auto 100 /uL (0-100); Basophils Percent Auto 0.8 % (0-2); Eosinophils Absolute Auto 100 /uL (0-450); Eosinophils Percent Auto 2.2 % (2-4); Hematocrit 40.9 % (36-46); Hemoglobin 13.8 g/dL (12.0-16.0); Lymphocytes Absolute Auto 1200 /uL (1100-4500); Lymphocytes Percent Auto 18.7 % (25-40); Mean Corpuscular HGB Conc 33.7 % (30-36); Mean Corpuscular Hemoglobin 31.7 PG (26-34); Mean Corpuscular Volume 93.9 fL (80-100); Monocytes Absolute Auto 600 /uL (0-900); Monocytes Percent Auto 9.8 % (3-14); Neutrophils Absolute Auto 4400 /uL (1500-7000); Neutrophils Percent Auto 68.5 % (50-75); Platelet Count 197 X10^3/uL (150-400); Red Blood Cell Count 4.36 X10^6/uL (4.0-5.2); Red Cell Distribution Width 12.7 % (11.6-14.8); White Blood Cell Count 6.4 X10^3/uL (4.5-11.0)
[2024-10-05 18:46] LABS: D Dimer 1030 ng/ml (<500)
[2024-10-05 18:47] LABS: Alanine Aminotransferase 22 IU/L (<35); Albumin 4.3 g/dL (3.5-5.0); Albumin Globulin Ratio 1.4 (1.0-2.8); Alkaline Phosphatase 83 U/L (38-126); Aspartate Aminotransferase 30 IU/L (14-36); BUN Creatinine Ratio 21.3 (6-22); Bilirubin Total 1.1 mg/dL (0.2-1.3); Blood Urea Nitrogen 16 mg/dL (7-17); Calcium 9.5 mg/dL (8.4-10.2); Carbon Dioxide 26 mmol/L (22-32); Chloride 106 mmol/L (98-107); Estimated Glomerular Filt Rate > 60 mL/min (>60); Glucose 89 mg/dL (80-110); HEMOLYSIS < 15 (0-50); Potassium 3.9 mmol/L (3.4-5.1); Sodium 139 mmol/L (137-145); Total Protein 7.3 g/dL (6.3-8.2)
--- NOTE | 2024-10-05 19:01 | DI.CT.S_ITS ---
PROCEDURE: CT ANGIO CHEST PE PROTOCOL INDICATIONS: low sat, elevated dimer, shob w/exertion TECHNIQUE: After the administration of intravenous contrast, 2 mm thick sections acquired from the pulmonary apices to the posterior costophrenic angles. 3-dimensional maximum intensity projection (MIP) coronal and sagittal reformats were then acquired through the thorax. For radiation dose reduction, the following was used: automated exposure control, adjustment of mA and/or kV according to patient size. COMPARISON: [facility], CR, XR CHEST 2V, 10/05/2024, 17:08. FINDINGS: Image quality: Diagnostic. Pulmonary arteries: Pulmonary arteries are normal in size, and demonstrate no intraluminal filling defects to suggest central pulmonary embolism. Lower Neck: No enlarged lymph nodes. Thyroid: No thyroid nodules which require sonographic follow up, per consensus guidelines. Axillae: No enlarged lymph nodes. Chest Wall: Unremarkable. Bones: Visualized osseous structures appear intact without acute fracture or focal destructive lesion. No acute compression fractures of the imaged spine. Lungs and Pleura: No pneumothorax or pleural effusions. No suspicious pulmonary nodules. Bibasilar atelectasis. Mild patchy consolidations of the left lower lobe, right lower lobe and medial right middle lobe with mild perihilar airway thickening. Heart: Heart size is normal. No pericardial effusion. Thoracic Vessels: No aortic aneurysm. Mediastinum and Hiral: No enlarged lymph nodes. Esophagus: No wall thickening. No hiatal hernia. Upper Abdomen: Visualized upper abdomen solid organs and bowel loops appear normal. IMPRESSION: No pulmonary embolus. No evidence for acute right-sided heart strain. Patchy right greater than left bibasilar consolidations as well as the medial right middle lobe which are favored to represent atelectasis. However, early infectious process not excluded if clinically appropriate. Otherwise, no acute cardiopulmonary abnormalities identified. Dictated by: Darin Perez M.D. on 10/05/2024 at 19:46 Approved by: Darin Perez M.D. on 10/05/2024 at 19:51
[2024-10-05 19:14] LABS: Creatine Kinase 56 U/L (30-135)
[2024-10-05 19:26] LABS: NT-proBNP (BNP-Adult 18+) 507 pg/mL (<450); Troponin I < 0.012 ng/mL (0.01-0.034)
[2024-10-05 19:49] VITALS: PULSE 70; O2SAT 98
[2024-10-05 20:00] VITALS: BP 161/72; PULSE 71; RESP 16; O2SAT 96
[2024-10-05] MEDS: AZITHROMYCIN 250 MG TABLET 500 MG PO (20:18)
== END 2024-10-05 20:20 | disposition home or self-care (01) ==
PROVIDERS: Student in an Organized Health Care Education/Training Program; Emergency Provider Emergency Medicine; PCP Family Medicine
DX: J18.9 Pneumonia, unspecified organism (principal); J90 Pleural effusion, not elsewhere classified; R06.02 Shortness of breath
CPT/HCPCS: 36415; 71046; 71275; 80053; 82550; 83880; 84484; 85025; 85379; 99284; Q9967

== ENCOUNTER → 2024-11-06 10:18 | Outpatient (CLI) | payer MEDICARE, OTHER, SELFPAY ==
--- NOTE | 2024-11-06 10:23 | DI.MRI.S_ITS ---
PROCEDURE: MR THORACIC SPINE WO CON INDICATIONS: Chronic thoracic pain righ side TECHNIQUE: Noncontrast sagittal T1 spine echo and T2 fast spin echo, sagittal STIR, and T2 fast spin echo through the thoracic spine. COMPARISON: [facility], CR, XR CHEST 2V, 10/05/2024, 17:08. [facility], CT, CT ANGIO CHEST PE PROTOCOL, 10/05/2024, 19:26. FINDINGS: Image quality: Excellent. Alignment and Curvature: There is moderate levoconvex lumbar scoliosis. Accentuated thoracic kyphosis is seen. No focal AP alignment abnormality is seen. Bone Marrow: Marrow is of normal overall signal. Scattered foci are seen, which are hyperintense on T1-weighted and T2-weighted imaging, which are most consistent with benign vertebral body hemangiomas. No acute vertebral body compression fractures. Spinal Cord: Visualized spinal cord is normal in size and signal. Paraspinous Soft Tissues: No paravertebral masses. Miscellaneous: A few levels of [id number] neural foraminal narrowing can be seen within the mid to lower thoracic spine. No significant central canal narrowing can be seen. IMPRESSION: Levoconvex scoliosis and associated accentuated thoracic kyphosis. A few levels of [id number] neural foraminal narrowing can be seen within the mid to lower thoracic spine. No significant central canal narrowing is seen. Dictated by: Peyman Capps M.D. on 11/06/2024 at 11:24 Approved by: Peyman Capps M.D. on 11/06/2024 at 11:27
== END ==
LOC: MRI 10:22
PROVIDERS: PCP Family Medicine; Referring Provider Family Medicine; Visit Provider Family Medicine
DX: M48.061 Spinal stenosis, lumbar region without neurogenic claudication (principal); M54.6 Pain in thoracic spine; G89.29 Other chronic pain
CPT/HCPCS: 72146

== ENCOUNTER → 2024-12-19 13:31 | Outpatient (CLI) | payer MEDICARE, OTHER, SELFPAY ==
--- NOTE | 2024-12-19 13:32 | DI.NM.S_ITS ---
PROCEDURE: NM GEORGE PERF SPECT R&S PHARM Rest and pharmacological stress myocardial perfusion SPECT with gated imaging and ejection fraction RADIOPHARMACEUTICAL: 26.9 mCi Tc-99m tetrafosmin IV at rest and 25.7 mCi Tc-99m tetrafosmin IV at peak effect of pharmacological stress. Ulr-ywh-usjutobn was performed. INDICATIONS: GALVAN, bigeminy, left-sided arm pain, PQRS ATTESTATIONS: Measure 322 - Is this imaging test primarily performed on a low-risk surgery patient for preoperative evaluation within 30 days preceding their low-risk non-cardiac surgery? Low-risk surgery is defined as cardiac or myocardial infarction less than 1%, including (but not limited to) endoscopic procedures, superficial procedures, cataract surgery, and excisional breast surgery: Answer: No Measure 323 - Is this imaging test performed primarily for the monitoring of an asymptomatic patient who had percutaneous coronary intervention on the visit date or within 2 years of the visit date? Answer: No Measure 324 - Is this imaging test performed primarily for the initial detection and risk assessment on an asymptomatic, low coronary heart disease patient? Low CHD risk definition = clinicians should consider the maximum number of available patient factors used to estimate risk based on [place] (ATP III criteria), typically age, gender, diabetes, smoking status, and use of blood pressure medication, and integrate age appropriate estimates for missing elements, such as LDL or standard blood pressure. Answer: No TECHNIQUE: Radiopharmaceutical was injected at peak stress test, and also at rest. SPECT images were obtained. SPECT myocardial perfusion images were displayed in short axis, horizontal long axis, and vertical long axis views. Gated images were reviewed using [employer] software. COMPARISON: None. CARDIAC STRESS: A pharmacologic stress test was performed under the supervision of an attending staff, using an infusion of 0.4 mg of Lexiscan. Hemodynamic data: There is normal blood pressure and heart rate response to pharmacologic stress. Symptoms: The patient denied anginal chest pain. Aminophylline: No EKG: No diagnostic changes of ischemia; frequent PVCs noted during Lexiscan infusion as well as during recovery. FINDINGS: Raw data: There is good myocardial uptake of radiotracer. No significant motion artifacts. Etqe-jb-yiyah ratio was not calculated (normal is less than 0.38 for tetrafosmin tracer). Left ventricle function: Gated images demonstrate normal left ventricular wall thickening. No segmental wall motion abnormalities. No transient ischemic dilation; TID is 1.10 (normal less than 1.3). Left ventricle resting end diastolic volume is 70 mL. Left ventricle stress ejection fraction is 66; normal range is above 45%. Myocardial perfusion: There is normal distribution of activity in the right and left ventricular myocardium. No fixed or reversible perfusion defects. IMPRESSION: 1. Negative Lexiscan myocardial perfusion scan for ischemia and infarction. 2. Frequent PVCs. Dictated by: Mitchell Alarcon M.D. on 12/20/2024 at 16:37 Approved by: Mitchell Alarcon M.D. on 12/20/2024 at 16:39
== END ==
PROVIDERS: PCP Family Medicine; Referring Provider Family Medicine; Visit Provider Family Medicine
DX: I47.10 Supraventricular tachycardia, unspecified (principal); I49.8 Other specified cardiac arrhythmias; I49.3 Ventricular premature depolarization; R06.09 Other forms of dyspnea
CPT/HCPCS: 78452; 93017; A9502; J2785

== ENCOUNTER → 2025-05-14 09:27 | Outpatient (CLI) | payer MEDICARE, OTHER, SELFPAY ==
[2025-05-14 19:44] LABS: Add Manual Diff / Slide Review NO; Hematocrit 39.1 % (36-46); Hemoglobin 13.5 g/dL (12.0-16.0); Lymphocytes Absolute Auto 1000 /uL (1100-4500); Mean Corpuscular HGB Conc 34.5 % (30-36); Mean Corpuscular Hemoglobin 32.4 PG (26-34); Mean Corpuscular Volume 93.9 fL (80-100); Platelet Count 188 X10^3/uL (150-400)
[2025-05-14 19:51] LABS: Alanine Aminotransferase 19 IU/L (<35); Albumin 4.0 g/dL (3.5-5.0); Albumin Globulin Ratio 1.5 (1.0-2.8); Alkaline Phosphatase 66 U/L (38-126); Blood Urea Nitrogen 15 mg/dL (7-17); Calcium 9.5 mg/dL (8.4-10.2); Carbon Dioxide 27 mmol/L (22-32); Chloride 106 mmol/L (98-107); Cholesterol 165 mg/dL (140-199); Estimated Glomerular Filt Rate > 60 mL/min (>60); Globulin 2.6 g/dL (1.7-4.1); Glucose 108 mg/dL (70-99); HDL Cholesterol 64 mg/dL (40-60); HEMOLYSIS < 15 (0-50); Potassium 4.4 mmol/L (3.4-5.1); Sodium 140 mmol/L (137-145); Total Protein 6.6 g/dL (6.3-8.2); Triglycerides 115 mg/dL (35-150)
[2025-05-14 19:58] LABS: NT-proBNP (BNP-Adult 18+) 666 pg/mL (<450)
== END ==
PROVIDERS: PCP Family Medicine; Visit Provider Family Medicine
DX: F33.42 Major depressive disorder, recurrent, in full remission (principal); R06.09 Other forms of dyspnea; E78.2 Mixed hyperlipidemia; I10 Essential (primary) hypertension
CPT/HCPCS: 80053; 80061; 83880; 85025